=== PATIENT | female | born 1960 | race Caucasian/White ===

== ENCOUNTER 2020-05-23 11:42 | Emergency (ER) | payer MEDICARE, SELFPAY ==
[2020-05-23 12:16] VITALS: BP 140/49; PULSE 68; RESP 19; TEMP 36.8; O2SAT 99; BMI 26.5
--- NOTE | 2020-05-23 12:23 | HMH.EDUTC ---
[facility] Disposition Clinical Impression: COVID-19 Diarrhea Qualifiers: Diarrhea type: unspecified type Qualified Code(s): R19.7 - Diarrhea, unspecified Disposition: Home, Self-Care Condition on Discharge: Good Instructions: Preventing the Spread of Coronavirus Discharge Instructions Additional Instructions: No sign of a bacterial infection. Likely viral. Viruses can take 7-14 days to run their course. Nasal saline and bulb syringe or nose Jennifer to remove nasal drainage to help with nasal congestion. Hard to eat, drink, sleep with nasal congestion so important to keep this cleaned out. Monitor temp. Tylenol or Motrin as needed for pain or fever Encourage fluids, water, Gatorade, Powerade, Pedialyte if infant/toddler/child Warm salt water gargles Warm fluids Sore throat lozenges Sleep elevated Humidifier/vaporizer Your covid swab was sent, call in 4-5 hours for result. These results are typically sent to the primary care. Be sure you follow-up in 2-3 days if no improvement so we can review the results and treat if necessary if you do not have a primary care, I recommend to get 1 but in the meantime, call for results. Follow-up immediately for new or worsening symptoms or no noticeable improvement over the next 48-72 hours. Referrals: Parmjit Medrano [Primary Care Provider] - Time of Disposition: 12:32 Medical Decision Making - Uriel Inquiry Pt receiving controlled substance: No Vital Signs: 05/23/20 12:16 Temperature 98.2 F Temperature Source Oral Pulse Rate [Right Brachial] 68 Respiratory Rate 19 Blood Pressure [Right Arm] 140/49 L Blood Pressure Mean [Right Arm] 79 Blood Pressure Source [Right Arm] Automatic Cuff Blood Pressure Position [Right Arm] Sitting 02 Sat by Pulse Oximetry 99 Oxygen Delivery Method Room Air Orders (Tests/Meds): ORDERS Category Date Time Status Covid-19 Nasal PCR ([facility]) Routine Lab 05/23/20 12:13 Received [facility] HPI - General Chief complaint: Urgent [facility] Stated complaint: Covid test Time Seen by Provider: 05/23/20 12:23 Mode of Arrival: Ambulatory Source of Information: Patient Limitations: No Limitations Description of Symptoms (Recalled from Triage Doc. by RN): PATIENT C/O DIARRHEA, HEADACHE, AND NAUSEA X 2 DAYS HEENT Symptoms (Recalled from RN notes): No Resp Symptoms (Recalled from RN notes): No Skin Symptoms (Recalled from RN notes): No MS Symptoms (Recalled from RN notes): No Functional Status (Recalled from RN notes): WNL - History of Present Illness Provider Complaint: 60 yr old female presents for diarreha x 1 week, abd cramps, chills, night sweats and headache for 2 days. Pt states her son came in from out of town 3 weeks ago and she became ill 1 week ago with diarreha. Pt states diarreha has improved but she4 would like to have covid test. - Related Data Allergies Allergy/AdvReac Type Severity Reaction Status Date / Time No Known Allergies Allergy Verified 05/23/20 12:20 - Worker's Comp Is this a Worker's Comp case?: No [facility] History - Hepatitis A Screen Drug use history?: No High risk sexual behaviors?: No History of sexually transmitted infection?: No Currently employed?: No Childcare worker?: No Do you have indoor plumbing?: Yes Do you have electricity?: Yes Attestation statement:: This patient has been screened for Hepatitis A risk factors. I have reviewed the patient's past medical history: Yes Medical History: Reports:: Diabetes Mellitus Type 2 - Social History Alcohol Intake: never Occupational Status: other ROS Obtained: Yes Systems reviewed as appropriate & no additional complaints - Constitutional Constitutional: Reports system reviewed and no additional complaints, except as docu, Denies fever(s), Denies poor appetite - Eyes Eyes: Reports system reviewed and no additional complaints, except as docu, Denies dry eyes - ENT Ears, Nose, Mouth, and Throat: Reports system reviewed and no additional comp
[2020-05-23 12:33] VITALS: BP 140/49; PULSE 68; RESP 19; TEMP 36.8; O2SAT 99
== END 2020-05-23 12:41 | disposition home or self-care (01) ==
PROVIDERS: Emergency Provider Nurse Practitioner Family; PCP Pediatrics
DX: Z20.828 Contact with and (suspected) exposure to other viral communicable diseases (principal); E11.9 Type 2 diabetes mellitus without complications
CPT/HCPCS: G0463; 99201; U0003